=== PATIENT | female | born 1950 | race Caucasian/White ===

== ENCOUNTER 2017-08-09 15:39 | Emergency (ER) | payer MEDICARE, OTHER ==
[2017-08-09 16:05] VITALS: BP 142/70
--- NOTE | 2017-08-09 16:16 | UC ---
Skin Complaint HPI - HPI Summary HPI Summary: 67 yo F with hx multiple tick exposures in the past, hx fibromyalgia states she pulled a tick off her abdomen 3 days ago, then today noted red rash in the site of where the tick was. - History of Current Complaint Chief Complaint: UCSkin Time Seen by Provider: 08/09/17 16:13 Stated Complaint: INSECT BITE ON BELLY Hx Obtained From: Patient Hx Last Menstrual Period: N/A Onset/Duration: Sudden Onset, Lasting Days Skin Exposure Onset/Duration: Days Ago Timing: Constant Onset Severity: Moderate Current Severity: Moderate Pain Intensity: 0 Pain Scale Used: 0-10 Numeric Location: Discrete - abdomen Character: Redness Aggravating Factor(s): Nothing Alleviating Factor(s): Nothing Associated Signs & Symptoms: Positive: Rash. Negative: Fever, Throat Tightening Similar Episode/Dx as: Lyme disease - Allergy/Home Medications Allergies/Adverse Reactions: Allergies Allergy/AdvReac Type Severity Reaction Status Date / Time enoxaparin [From Lovenox] Allergy Intermediate Rash Verified 08/09/17 16:07 pollen extracts Allergy Intermediate Sneezing Verified 08/09/17 16:07 Sulfa (Sulfonamide AdvReac nosebleeds Verified 08/09/17 16:07 Antibiotics) Home Medications: Home Medications Aspirin [Aspirin Childrens 81 MG] 81 mg PO 08/09/17 [History] Dexlansoprazole [Dexilant] 60 mg PO 08/09/17 [History] Fexofenadine (NF) [Ale 180 (NF)] 180 mg PO 08/09/17 [History] Fluticasone NASAL SPRAY 50MCG* [Flonase NASAL SPRAY 50MCG*] 08/09/17 [History] Fluticasone-Salmeterol 250-50* [Advair Diskus 250-50*] 1 puff INH BID 08/09/17 [ History Confirmed 08/09/17] Gabapentin [Neurontin] 100 mg PO 08/09/17 [History] Levothyroxine TAB* [Synthroid TAB*] 100 mcg PO DAILY 08/09/17 [History Confirmed 08/09/17] Metformin HCl [Fortamet] 500 mg PO 08/09/17 [History] Metoprolol Tartrate TAB* [Lopressor TAB*] 25 mg PO DAILY 08/09/17 [History Confirmed 08/09/17] Propylene Glycol/Peg 400/Pf [Systane 0.3-0.4% Eye Drops] 1 each OP 08/09/17 [ History] Rosuvastatin Calcium [Crestor] 20 mg PO 08/09/17 [History] Spironolactone 25 mg PO 08/09/17 [History] raNITIdine HCl [Ranitidine HCl] 150 mg PO 08/09/17 [History] traMADol TAB* [Ultram*] 08/09/17 [History] Review of Systems Constitutional: Negative Skin: Rash Eyes: Negative ENT: Negative Respiratory: Negative Cardiovascular: Negative Gastrointestinal: Negative Motor: Negative Neurovascular: Negative Musculoskeletal: Arthralgia - chronic right hip pain Neurological: Negative Psychological: Negative Is Patient Immunocompromised?: No All Other Systems Reviewed And Are Negative: Yes PMH/Surg Hx/FS Hx/Imm Hx Previously Healthy: No - fibromyalgia Endocrine History: Diabetes, Hypothyroidism, Dyslipidemia Cardiovascular History: Hypertension Respiratory History: COPD - Surgical History Surgical History: Yes Surgery Procedure, Year, and Place: thyroidectomy, hysterectomy, - Family History Known Family History: Positive: Other - cancer - Social History Alcohol Use: Occasionally Substance Use Type: None Smoking Status (MU): Never Smoked Tobacco Physical Exam Triage Information Reviewed: Yes Appearance: No Pain Distress, Well-Nourished, Ill-Appearing - mild Vital Signs: Initial Vital Signs Temp 98.8 F 08/09/17 15:53 Pulse 89 08/09/17 15:53 Resp 16 08/09/17 15:53 BP 142/70 08/09/17 15:53 Pulse Ox 99 08/09/17 15:53 Vital Signs Reviewed: Yes Eyes: Positive: Conjunctiva Clear ENT: Positive: Normal ENT inspection Neck: Positive: Supple, Nontender, No Lymphadenopathy Respiratory: Positive: Lungs clear, Normal breath sounds, No respiratory distress, No accessory muscle use Cardiovascular: Positive: RRR, No Murmur, Pulses Normal, Brisk Capillary Refill Abdomen Description: Positive: Nontender, No Organomegaly, Soft, Other: - diffuse macular erythematous rash, 20cm, with site of tick bite in center; tick has been removed. Negative: Distended, Guarding Bowel Sounds: Positive: Present Musculoskeletal: Positive: Strength Intact, ROM Intact Neurological Exam: Normal Psychological Exam: Normal Skin: Positive: rashes - as above Course/Dx - Course Course Of Treatment: will treat as possible Lyme disease. Rash is consistent with erythema migrans. Advised pt to have definite follow up. Rx for zofran, as pt has taken doxycycline for this in the past, and tolerated doxycycline with the zofran. Advised pt that it is too early for serology. - Differential Diagnoses - Skin Complaint Differential Diagnoses: Cellulitis, Contact Dermatitis, Drug Rash, Local Allergic Reaction, Tick Born Illness - Diagnoses Provider Diagnoses: Erythema migrans. Lyme disease Discharge - Sign-Out/Discharge Documenting (check all that apply): Discharge/Admit/Transfer - discharge home - Discharge Plan Condition: Stable Disposition: HOME Prescriptions: DOXYcycline CAP(*) [DOXYcycline 100MG CAP(*)] 100 mg PO BID #42 cap Ondansetron ODT TAB* [Zofran 4 MG Odt TAB*] 4 mg PO Q6H PRN #30 tab.odt PRN Reason: Nausea Patient Education Materials: Lyme Disease (ED), Tick Bite (ED) Referrals: Non Staff,Doctor [Primary Care Provider] - Additional Instructions: Dr. Howe has prescribed doxycycline 100mg twice a day for a total of 3 weeks, which would treat Lyme disease, if that is what this rash represents. You should take it at least two weeks, and talk with your primary care provider about whether to complete the full dose. This rash looks like erythema migrans to Dr. Howe. It is too early to draw the blood test for Lyme disease. You were also given Prednisone 40mg orally today, to help with the rash, as you have said this has helped in the past. You may still get the cortisone shot in your hip tomorrow. You may take a zofran with each doxycycline capsule, to help you with nausea. Dr. Howe recommends that you might want to spray PERMETHRIN on your clothing, to repel ticks, that you can buy in a sporting goods store, and it lasts for 6 washings. Follow up with you PCP in [place] within 2 weeks. Return to urgent care if any new or worsening symptoms. - Billing Disposition and Condition Condition: STABLE Disposition: HOME
[2017-08-09] MEDS ORDERED: predniSONE TAB* 20 MG PO ONE (16:30)
== END 2017-08-09 16:52 | disposition home or self-care (01) ==
LOC: UCCORT 15:39
DX: A26.0 Cutaneous erysipeloid (principal); A69.20 Lyme disease, unspecified; Z88.2 Allergy status to sulfonamides; Z88.8 Allergy status to other drugs, medicaments and biological substances; M79.7 Fibromyalgia; E03.9 Hypothyroidism, unspecified; E78.5 Hyperlipidemia, unspecified; I10 Essential (primary) hypertension; J44.9 Chronic obstructive pulmonary disease, unspecified
CPT/HCPCS: 99202; G0463; J7512

== ENCOUNTER 2017-08-10 12:04 | Emergency (ER) | payer MEDICARE, OTHER ==
[2017-08-10 12:58] VITALS: BP 138/71
--- NOTE | 2017-08-10 13:20 | UC ---
Skin Complaint HPI - HPI Summary HPI Summary: Rash and itchiness on the abdomen at site of recent tick bite. She is on doxycycline as well. She has had this before and prednisone has helped. She is requesting prednisone and DM has been very well controlled with sugars in the 95 range. - History of Current Complaint Chief Complaint: UCGeneralIllness Time Seen by Provider: 08/10/17 13:05 Stated Complaint: SKIN COMPLAINT-POSS INSECT BITE Hx Obtained From: Patient Hx Last Menstrual Period: N/A Onset/Duration: Gradual Onset, Lasting Days Skin Exposure Onset/Duration: Days Ago Timing: Constant Onset Severity: Mild Current Severity: Mild Pain Intensity: 0 Location: Discrete - abdomen anterior. Character: Pruritus Aggravating Factor(s): Touch Alleviating Factor(s): Nothing Associated Signs & Symptoms: Positive: Rash. Negative: Fever, Chills, Cough, Wheezing, Chest Pain, Drainage, Tenderness, Red Streaks Related History: Possible Reaction to: Insect - Allergy/Home Medications Allergies/Adverse Reactions: Allergies Allergy/AdvReac Type Severity Reaction Status Date / Time enoxaparin [From Lovenox] Allergy Intermediate Rash Verified 08/10/17 12:54 pollen extracts Allergy Intermediate Sneezing Verified 08/10/17 12:54 Sulfa (Sulfonamide AdvReac nosebleeds Verified 08/10/17 12:54 Antibiotics) contrast dye Allergy Hives Uncoded 08/10/17 12:54 Review of Systems Skin: Rash All Other Systems Reviewed And Are Negative: Yes PMH/Surg Hx/FS Hx/Imm Hx Previously Healthy: No - dm. - Surgical History Surgical History: Yes Surgery Procedure, Year, and Place: thyroidectomy, hysterectomy, - Family History Known Family History: Positive: Other - cancer - Social History Alcohol Use: Occasionally Substance Use Type: None Smoking Status (MU): Never Smoked Tobacco Physical Exam Triage Information Reviewed: Yes Appearance: Well-Appearing, No Pain Distress, Obese Vital Signs: Initial Vital Signs Temp 98.2 F 08/10/17 12:48 Pulse 69 08/10/17 12:48 Resp 17 08/10/17 12:48 BP 138/71 08/10/17 12:48 Pulse Ox 98 08/10/17 12:48 Vital Signs Reviewed: Yes Eyes: Positive: Conjunctiva Clear. Negative: Conjunctiva Inflamed ENT: Positive: Normal ENT inspection, Pharynx normal Neck: Positive: Supple, Nontender, No Lymphadenopathy Respiratory: Positive: Lungs clear, Normal breath sounds, No respiratory distress, No accessory muscle use. Negative: Respiratory distress, Decreased breath sounds, Accessory muscle use, Crackles, Rhonchi, Stridor, Wheezing Cardiovascular: Positive: No Murmur, Pulses Normal, Brisk Capillary Refill Abdomen Description: Positive: No Organomegaly, Soft. Negative: Distended, Guarding Musculoskeletal: Positive: Strength Intact, ROM Intact, No Edema Neurological: Positive: Alert, Muscle Tone Normal. Negative: Fatigued Psychological: Positive: Age Appropriate Behavior Skin: Positive: rashes - anterior abdomen pink skin without induration or swelling. Course/Dx - Diagnoses Provider Diagnoses: insect bite and rash. Discharge - Sign-Out/Discharge Documenting (check all that apply): Discharge/Admit/Transfer - Discharge Plan Condition: Good Disposition: HOME Prescriptions: methylPREDNISolone [Medrol] 4 mg PO DAILY #21 tab.ds.pk Patient Education Materials: Acute Rash (ED) Referrals: Non Staff,Doctor [Primary Care Provider] - - Billing Disposition and Condition Condition: GOOD Disposition: HOME
== END 2017-08-10 13:19 | disposition home or self-care (01) ==
LOC: UCCORT 12:04
DX: S30.861A Insect bite (nonvenomous) of abdominal wall, initial encounter (principal); W57.XXXA Bitten or stung by nonvenomous insect and other nonvenomous arthropods, initial encounter; Y93.9 Activity, unspecified; Y92.9 Unspecified place or not applicable; R21 Rash and other nonspecific skin eruption; E11.9 Type 2 diabetes mellitus without complications; Z88.2 Allergy status to sulfonamides; Z88.8 Allergy status to other drugs, medicaments and biological substances; Z91.041 Radiographic dye allergy status
CPT/HCPCS: 99211; G0463

== ENCOUNTER 2019-01-20 14:49 | Emergency (ER) | payer MEDICARE, OTHER ==
--- OUTSIDE RECORDS SUMMARY | 2019-01-20 14:59 | XMS REPORT | Continuity of Care Document ---
:1950 External Reference #:[id number] Author Name Asael Funez M.D. Address [address] [place] [id number] Care Team Providers Name Role Phone Sussy Amado M.D. - Family Care Team Information [employer] Dis[employer] [phone] Medicine Problems Active Problems Provider Date Posterior rhinorrhea Onset: 02/02/2016 Chronic ethmoidal sinusitis Onset: 07/23/2015 Deviated nasal septum Onset: 07/23/2015 Chronic rhinitis Onset: 07/07/2015 Disorder of nasal cavity Onset: 07/07/2015 Pain in face Onset: 07/07/2015 Chronic maxillary sinusitis Onset: 07/26/2014 Difficulty speaking Onset: 12/21/2013 Cough Onset: 12/21/2013 Social History Type Date Description Comments Sex Unknown ETOH Use Occasionally consumes alcohol Tobacco Use Start: Unknown Patient has never smoked Allergies, Adverse Reactions, Alerts Active Allergies Reaction Severity Comments Date Sulfonamides Moderate 10/08/2017 Contrast Dye hives Moderate 10/08/2017 Lovenox hives Moderate 10/08/2017 Lisinopril cough Moderate 10/08/2017 Codeine Sulfate vomiting Moderate 10/08/2017 Doxycycline nausea Moderate 10/08/2017 Medications Active Medications SIG Qnty Indications Ordering Date Provider Augmentin one by mouth twice a 28tabs Asael Funez, 12/07/2018 875-125mg day x 14 days M.D. Tablets Ranitidine HCL Unknown 12/21/2013 150mg Capsules Losartan Potassium Unknown 12/21/2013 50mg Tablets Metoprolol Tartrate Unknown 12/21/2013 25mg Tablets Aspirin Ec Low Dose Unknown 12/21/[address] Acetaminophen Unknown 12/21/2013 160mg/5ML Suspension Levothyroxine Sodium 1 by mouth every day Unknown 88mcg Tablets Turmeric Unknown 500mg Tablets Gabapentin Unknown 500mg Capsules Multivitamin Unknown Metformin HCL take 1 tablet by Unknown 1000mg mouth twice daily Tablets with meals Magnesium With Zinc Unknown Powder Flaxseed Oil Unknown Oil Digestive Support Unknown Capsules Crestor 1 by mouth every day Unknown 10mg Tablets Calcium Citrate + D Unknown Tablets Advair Diskus inhale 1 puff by Unknown inhalation route 2 250-50mcg/Dose times every day in Aerosol the morning and evening approximately 12 hour Spironolactone Unknown 25mg Ale-D 24 Hour take once daily Unknown Allergy & Congestion 180-240mg Tablets ER 24HR Vitamin D Unknown Capsules Immunizations Description No Information Available Vital Signs Date Vital Result Comment 12/07/2018 2:07pm Height 67 inches 5'7" Weight 174.00 lb BMI (Body Mass Index) 27.2 kg/m2 BP Systolic 115 mmHg Right BP Diastolic 71 mmHg Right Heart Rate 76 /min 01/13/2018 2:57pm Height 68 inches 5'8" Weight 178.00 lb BMI (Body Mass Index) 27.1 kg/m2 BP Systolic 124 mmHg right arm BP Diastolic 78 mmHg right arm Results Description No Information Available Procedures Date Code Description Status 12/07/2018 06037 Endoscopy Nasal Diagnostic Completed Medical Devices Description No Information Available Encounters Type Date Location Provider Dx Diagnosis Office Visit 12/07/2018 [facility] Asael Funez, J31.0 Chronic rhinitis 1:[facility] Randi J32.0 Chronic maxillary sinusitis J32.1 Chronic frontal sinusitis Assessments Date Code Description Provider 12/07/2018 J31.0 Chronic rhinitis Asael Funez M.D. 12/07/2018 J32.0 Chronic maxillary sinusitis Asael Funez M.D. 12/07/2018 J32.1 Chronic frontal sinusitis Asael Funez M.D. Plan of Treatment 12/07/2018 - Asael Funez M.D.J31.0 Chronic [id number] Chronic maxillary [id number] Chronic frontal sinusitisComments:Sasha has symptoms consistent with an acute flareup of her sinusitis. Her endoscopy looks surprisingly good today. I obtained a culture from the right maxillary sinus. We have started her on some Augmentin pending the culture results. She will follow up with me as needed.Follow up:as needed Functional Status Description No Information Available Mental Status Description No Information Available Referrals Description No Information Available
--- OUTSIDE RECORDS SUMMARY | 2019-01-20 14:59 | XMS REPORT | Continuity of Care Document ---
:1950 External Reference #:[id number] Author Name TRES Heath (transmitted by agent of provider Sussy Amado MD) Address [address], [address] [place] [address] Care Team Providers Name Role Phone Sasha La Care Team Information [employer] [facility] [phone] Problems Active Problems Provider Date Type 2 diabetes mellitus Onset: 03/10/2015 Benign essential hypertension Onset: 03/10/2015 Type 2 diabetes mellitus Onset: 10/25/2014 Thyroid nodule Onset: 02/19/2014 Deep venous thrombosis Onset: 06/22/2013 Note: She had significant right leg swelling after she had cardiac catheterization done in 2009. She was found to have DVT and was on Coumadin for 6 months. She had repeat testing done and clot resolved. She has not been on Coumadin since thencouma 6. Benign essential hypertension Onset: 06/22/2013 Note: She has had hypertension since around 1999. She is on medicines . 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 Denies any kidney problems.. Diabetes mellitus Onset: 06/22/2013 Note: She was diagnosed with type 2 diabetes in 2012. She is on metformin and has been doing good. She does have slight neuropathy. Denies having any nephropathy and retinopathy.. Mixed hyperlipidemia Onset: 06/22/2013 Note: She has had mixed hyperlipidemia since 1996. She is on Crestor and has been following diet.. Fibromyositis Onset: 06/22/2013 Note: She has had fibromyalgia since . She is on Mobic and take Tylenol. She is also on Neurontin. Asthma Onset: 06/22/2013 Note: She has been having asthma symptoms for last 7 years. It is occurred mainly by acid reflux and has environmental allergies. She is on Flovent which is helping her. Environmental allergy Onset: 06/22/2013 Note: She has had environmental allergies for a long time. She is allergic to pollen, dust and dogs. She has many dogs at home. She is taking Ale and also has been getting allergy shots since 2011 by cider press operator in [place] which has helped her a lot. Gastroesophageal reflux disease Onset: 06/22/2013 Note: She has had acid reflux since 2004. She is on Protonix. She was increased to twice a day but it did not help her. She takes Zantac which helped her.. Osteopenia Sussy Amado MD Onset: 10/22/2015 Allergic rhinitis Sussy Amado MD Onset: 04/19/2016 Papillary thyroid carcinoma Regan Flores MD Onset: 10/22/2016 Postoperative hypothyroidism Regan Flores MD Onset: 10/22/2016 Urinary incontinence Sussy Amado MD Onset: 04/29/2017 Arthralgia of the pelvic region and thigh Sussy Amado MD Onset: 04/29/2017 Shoulder joint pain Sussy Amado MD Onset: 04/29/2017 Type 2 diabetes mellitus with diabetic Sussy Amado MD Onset: 10/27/2017 neuropathy, unspecified Cellulitis and abscess of trunk Sussy Amado MD Onset: 02/09/2018 Palpitations Sussy Amado MD Onset: 05/09/2018 Pain in left lower limb Sussy Amado MD Onset: 06/26/2018 Knee pain Sussy Amado MD Onset: 06/26/2018 Fracture of one rib, left side, subsequent Sussy Amado MD Onset: 2018 encounter for fracture with routine healing Nausea Sussy Amado MD Onset: 07/06/2018 Abdominal pain Sussy Amado MD Onset: 07/06/2018 Joint pain Sussy Amado MD Onset: 07/06/2018 Social History Type Date Description Comments Sex Unknown ETOH Use 01/05/2017 Occasionally consumes 4-5 times a year wine Tobacco Use Reviewed: 01/02/19 Patient has never smoked Recreational Drug Use 10/27/2017 Denies Drug Use Smoking Status Reviewed: 01/02/19 Patient has never smoked Exercise Type/Frequency Exercises daily walk the dog Allergies, Adverse Reactions, Alerts Active Allergies Reaction Severity Comments Date Sulfasalazine gum bleeding med period 07/04/2015 spottg Codeine Sulfate vomiting Moderate 12/07/2018 Codeine sick all over 08/18/2015 Doxycycline nausea Moderate 12/07/2018 Lovenox hives 10/22/2015 Lisinopril cough Moderate 12/07/2018 Amoxicillin Nausea and Vomiting can take with zofran 02/16/2016 Contrast Dye 04/19/2016 Medications Active Medications SIG Qnty Indications Ordering Date Provider Augmentin one by mouth twice 28tabs Asael Funez, 12/07/2018 875-125mg a day x 14 days M.D. Tablets Proair HFA inhale 2 puff by 8.500gm Tisha 04/13/2018 inhalation route MD Namita 108(90Base) mcg/Act every 4 - 6 hours Aerosol needed Levothyroxine Sodium 1 by mouth every 90tabs Regan Flores, 10/25/2016 day 88mcg Tablets Neurontin take 1 capsule by 180caps Sussy Amado, 03/12/2016 100mg oral route 2 times MD Capsules every day along with 300mg tab =500mg daily Metformin HCL take 1 tablet daily 180tabs Sussy Amado, 10/31/2015 500mg in the evening MD Tablets Crestor take 1 tablet by 90tabs Sussy Amado, 10/23/2015 10mg Tablets oral route every MD day Losartan Potassium take 1 tablet by 90tabs Sussy Amado, 10/07/2015 oral route every MD 50mg Tablets day Vitamin D take 1 capsule by 12capaudra Amado, 08/11/2015 (Ergocalciferol) oral route every MD month [id number] Capsules Freestyle Lite Test take 1 by injection 300units Sussy Amado, 2015 route 3 times every MD Strips day Neurontin take 1 capsule by 270caps Sussy Amado, 10/25/2014 300mg oral route every MD Capsules day along with 2- 100mg = 500mg daily Anais Contour Blood insert 1 by 300units Unknown 04/26/2014 Glucose Test Strips Subcutaneous route 2 times every day Strips Epipen 2-Lucio inject 0.3 3units Unknown 04/26/2014 milliliter by 0.3mg/0.3ML Solution intramuscular route Auto-Inject once needed for anaphylaxis Systane Take directed 0units Unknown 04/26/2014 0.4-0.3% Solution Advair Diskus inhale 1 puff by 0units Unknown 04/26/2014 inhalation route 2 250-50mcg/Dose times every day in Aerosol the morning and evening approximately 12 hour Acetaminophen Unknown 12/21/2013 160mg/5ML Suspension Aspirin EC Low Dose Unknown 12/21/[address] Ranitidine HCL Unknown 12/21/2013 150mg Capsules Aspir-81 take 1 tablet by 0tabs Unknown 06/22/2013 81mg Tablets oral route every DR day Metoprolol Tartrate take 1 tablet by 180tabs Sussy Amado, 06/22/2013 oral route 2 times 25mg Tablets every day Vitamin D3 take 1 Capsule by 0caps Unknown 06/22/2013 2000Unit Oral route every Capsules day Flaxseed Oil take 2 capsules by 0caps Unknown 06/22/2013 1000mg oral route every Capsules day Multi-Vitamins take 1 tablet by 0tabs Unknown 06/22/2013 oral route every Tablets day with food Ranitidine HCL take 1 tablet by 0tabs Unknown 06/22/2013 150mg oral route 2 times Tablets every day with a glass of water Turmeric 1 by mouth three Unknown 400mg times a day Capsules Ale-D 24 Hour take once daily Unknown Allergy & Congestion 180-240mg Tablets ER 24HR Acidophilus 1 by mouth every Unknown Capsules day Aldactone 1 tablet by mouth 90tabs Maynor 25mg every day MD Ramon Tablets Carafate take 10ml by mouth Unknown 1GM/10ML four times a day 1 Suspension h before meals 3 daily needed Fluticasone use two sprays in 48gm Sussy Amado, Propionate each nostril once 50mcg/Act daily Suspension Tylenol Go Tabs Unknown Extra Strength 500mg Chewtabs Ael Allergy 1 by mouth every Unknown 180mg day Tablets Calcium 500+D Unknown [id number] Tablets Dexilant 1 per day Unknown 60mg Capsules DR Medications Administered in Office Medication SIG Qnty Indications Ordering Provider Date Administer Influenza Virus Vaccine Sussy Amado MD 05/09/2018 Injection Administer Influenza Virus Vaccine Regan Flores MD 04/27/2017 Injection Administer Influenza Virus Vaccine Sussy Amado MD 01/05/2016 Injection Immunizations CPT Code Status Date Vaccine Lot # [id number] Given 05/09/2018 Influenza Vaccine, High Dose > 65 Years Old [id number] (Includes Medicare) 74846 Given 04/27/2017 Influenza Vaccine, High Dose > 65 Years Old [id number] (Includes Medicare) 19258 Given 01/05/2016 Influenza Vaccine, High Dose > 65 Years Old [id number] (Includes Medicare) 96712 Given 03/10/2015 Prevnar 13 [id number] Given 01/10/2015 Influenza Vaccine, High Dose > 65 Years Old (Includes Medicare) U-Flu Given 01/31/2014 Influenza,Unspecified Vital Signs Date Vital Result Comment 01/02/2019 2:17pm Height 66 inches 5'6" Weight 177.00 lb BMI (Body Mass Index) 28.6 kg/m2 BP Systolic 122 mmHg BP Diastolic 70 mmHg Heart Rate 73 /min Body Temperature 97.8 F Body Temperature 36.6 C O2 % BldC Oximetry 98 % 10/31/2018 2:18pm Height 66 inches 5'6" Weight 170.00 lb BMI (Body Mass Index) 27.4 kg/m2 BP Systolic 126 mmHg BP Diastolic 72 mmHg Heart Rate 64 /min Body Temperature 98.7 F Body Temperature 37.1 C O2 % BldC Oximetry 94 % Results Test Date Facility Test Result H/L Range Note Laboratory test 10/20/2018 [facility] Random < 3.0 mg/L - 1 finding [address] Microalbumin [place] [address] [phone] Random Urine Creatinine 46.6 mg/dL - 2 Laboratory test 10/03/2018 [facility] Hgb A1c 6.8 % 3.6-6.9 3 finding [address] [place] [address] [phone] CMP-Female 10/03/2018 [facility] LDH 170 U/L 120-246 4 W/LDH,Phosphorus,Ur [address] [place] [address] [phone] Phosphorus 4.3 mg/dL 2.7-4.5 5 Uric Acid 5.0 mg/dL 2.6-7.2 6 CMP-Female 10/03/2018 [facility] Glucose 105 mg/ dL 74-106 7 [address] [place], [place] [id number] [phone] BUN 15 mg/dL 6-20 Creatinine 0.7 mg/dL 0.5-1.3 Sodium 136 mmol/L 136-145 Potassium 4.6 mmol/L 3.5-5.3 Chloride 97 mmol/L Low 98-107 Co2 28 mEq/L 20-31 Anion Gap 11 mmol/L 7-16 eGFR-female 83 mL/m/1.73m - eGFR-Aa female 100 mL/m/1.73m - 8 Alk. Phos. 70 U/L 46-116 Alt 18 U/L 4-36 9 Ast 18 U/L 8-33 Total Bilirubin 0.5 mg/dL 0.3-1.2 Total Protein 6.7 g/dL 6.4-8.3 10 Albumin 4.6 g/dL 3.6-5.1 A/G Ratio 2.2 Ratio High 1.0-2.0 Globulin 2.1 g/dL 1.9-3.7 Calcium 9.7 mg/dL 8.9-10.5 CBCP 10/03/2018 [facility] WBC. 6.53 x10E3/uL 4.2-12.0 [address] [place] [address] [phone] RBC 4.15 x10E6/uL 3.9-5.4 HGB 13.7 g/dL 12.0-16.0 HCT 40.7 % 36-47 MCV 98.0 fL 80-98 MCH 33.1 pg High 27-33 MCHC 33.8 g/dL 32-36 RDW 12.2 % 11.2-15.2 PLT 365 x10E3/uL 135-420 MPV 7.3 fL 7.0-12.3 Laboratory test 10/03/2018 [facility] Vitamin D, 34.21 30-[address] 25(Oh). ng/ml [place] [address] [phone] LPPM 10/03/2018 [facility] Cholesterol 174 mg/ dL 0-[address] [place] [id number] [phone] Triglycerides 164 mg/dL 0-249 12 HDL 67 mg/dL High 40-60 LDL-Calculated 74 mg/dL 0-130 VLDL 33 mg/dL High 0-28 Cardiac Risk 2.60 Ratio Low 3.7-5.3 Laboratory test 10/03/2018 [facility] Est. Average 148 mg/dL - [address] Gl[place] [id number] [phone] Venipuncture DONE - 14 Hypothyroidism Panel 10/03/2018 [facility] TSH3 0.582 mIU/ml 0.350-5.[address] [place], [place] [id number] [phone] Free T4 1.18 ng/dL 0.89-1.80 16 Laboratory test 10/03/2018 [facility] Thyroglobulin <1 IU/mL < or = finding [address] Antibodies 1- [place], [place] [id number] [phone] Thyroglobulin,LC/MS/MS <0.4 ng/mL - 17 Laboratory test 07/06/2018 [facility] Lyme Disease 0.20 0-0.[address] [place] [place] [address] Reflex [phone] Venipuncture DONE - 1 Reference Range for Random Microalbumin not defined Unable to calculate Albumin/Creatinine ratio with less than result. 2 Reference Range Random Urine Creatinine not defined 3 Hgb A1c Interpretation: <5.8% - Non-diabetic >6.5% - Diabetic <7.0% - ADA diabetic treatment goal 4 FASTING 12 Please cc HGB A1C to Dr. Regan Flores to complete his request from 09/27/18 Ni on accession 5 FASTING 12 Please cc HGB A1C to Dr. Regan Flores to complete his request from 09/27/18 Ni on accession 6 FASTING 12 Please cc HGB A1C to Dr. Regan Flores to complete his request from 09/27/18 Ni on accession 7 [employer] Diabetes Association (ADA) Recommended Range is 65-99 mg/dL 8 Normal Kidney Function or Mild Disease GFR >59 mL/min/1.73m2 Chronic Kidney Disease GFR 15-59 mL/min/1.73m2 Renal Failure GFR <15 mL/min/1.73m2 9 Effective 10/09/2016: [facility] has indicated interference with the drugs sulfasalazine and sulfapyridine. They suggest collection should occur prior to drug administration due to falsely depressed results. 10 Results may reflect a potential interference in Total Protein results in patients receiving dextran as blood volume expanders. 11 Recommended Levels for Circulating 25-hydroxy Vitamin D: Vitamin D Status 25-OH Vitamin D Test Result Deficient <10ng/mL Insufficient 10-29ng/mL Sufficient 30-100ng/mL Potential Intoxication >100ng/mL A pediatric reference range has not been established using this method. 12 National Cholesterol Education Program (NCEP) Guidelines: Recommended Range <150 mg/dL 13 The Estimated Average Glucose is a calculation of the average glucose over the last 120 days including non-fasting as well as fasting levels. 14 FASTING 12 Please cc HGB A1C to Dr. Regan Flores to complete his request from 09/27/18 Ni on accession 15 thyroglobulin level (with LCMS) HGB A1C resulted on order from Dr. Sussy Amado. NI is on [id number] [facility] did not order Thyroglobulin Ab-test will be credited per Aissatou Wilson at [employer]/-lc 16 thyroglobulin level (with LCMS) HGB A1C resulted on order from Dr. Sussy Amado. NI is on [id number] [facility] did not order Thyroglobulin Ab-test will be credited per Aissatou Wilson at [employer]/-lc 17 Reference Range: Athyrotic: <0.4 Reference range applies to differentiated thyroid cancer patients following treatment. The presence of measurable thyroglobulin indicates the presence of thyroglobulin-producing thyroid tissue. Clinical correlation is advised. This Thyroglobulin test was performed by tandem mass spectrometry (LC/MS/MS) and does provide quantitative measurements of thyroglobulin in the presence of anti-Tg antibodies. Values obtained from different assay methods cannot be used interchangeably. Thyroglobulin levels, regardless of value, should not be interpreted as absolute evidence of the presence or absence of disease. This test was developed and its analytical performance characteristics have been determined by [employer] [facility]. It has not been cleared or approved by FDA. This assay has been validated pursuant to the CLIA regulations and is used for clinical purposes. 18 Normal Range: Less than 0.90 Index Value Result Interpretation < or = 0.90 Negative No B. burgdorferi antibodies detected 0.91-1.19 Equivocal Possible B. burgdorferi antibodies detected > or = 1.2 Positive B. burgdorferiantibodies detected This assay is intended for the presumptive detection of human IgG and IgM antibodies to Borrellia burgdorferi. A positive or equivocal result will be tested by Western Blot/Immunoblot and should not b e interpreted as truly positive until verified by such testing. If Lyme disease is strongly suspected with a negative screen, a second specimen should be collected in 2 to 4 weeks. Procedures Date Code Description Status 08/21/2018 90321 Cardiovascular Stress Test Interpretation & Report Only Completed 08/21/2018 70657 Cardiovascular Stress Test Physician Supervision Only Completed 08/19/2018 73280 Electrocardiogram Interpretation & Report Only Completed 08/18/2018 97839 Electrocardiogram Interpretation & Report Only Completed 07/27/2018 78346 Electrocardiogram Interpretation & Report Only Completed Medical Devices Description No Information Available Encounters Type Date Location Provider Dx Diagnosis Office Visit 10/31/2018 [facility] Primary Care Sussy Amado MD Z00.01 Encounter for 2:00p AT [place] general adult medical exam w abnormal findings E11.40 Type 2 diabetes mellitus with diabetic neuropathy, unsp K21.9 Gastro-esophageal reflux disease without esophagitis E78.2 Mixed hyperlipidemia I10 Essential (primary) hypertension J45.30 Mild persistent asthma, uncomplicated E89.0 Postprocedural hypothyroidism C73 Malignant neoplasm of thyroid gland Z13.31 Encounter for screening for depression A69.20 Lyme disease, unspecified M15.9 Polyosteoarthritis, unspecified M25.531 Pain in right wrist Z79.84 halfway (current) use of oral hypoglycemic drugs Office Visit 09/27/2018 2:20p [facility] Primary Care Regan Flores, C73 Malignant AT [place] neoplasm of thyroid gland E89.0 Postprocedural hypothyroidism S20.462A Insect bite (nonvenomous) of left back wall of thorax, init E11.9 Type 2 diabetes mellitus without complications E55.9 Vitamin D deficiency, unspecified Z79.84 halfway (current) use of oral hypoglycemic drugs Office Visit 09/01/2018 1:00p CMP Primary Sussy Amado, E11.40 Type 2 diabetes Care AT mellitus with [place] diabetic neuropathy, unsp I10 Essential (primary) hypertension A69.20 Lyme disease, unspecified K21.9 Gastro-esophageal reflux disease without esophagitis M25.551 Pain in right hip M25.562 Pain in left knee R07.9 Chest pain, unspecified R21 Rash and other nonspecific skin eruption Z79.84 halfway (current) use of oral hypoglycemic drugs Office Visit 08/20/2018 9:11a [facility] Cardiology Maynor R07.9 Chest pain, [facility] MD Ramon unspecified Office Visit 08/19/2018 8:33a [facility] Cardiology Maynor I25.10 [facility] MD Ramon disease of [place] coronary artery w/o ang pctrs E78.5 Hyperlipidemia, unspecified E11.9 Type 2 diabetes mellitus without complications I10 Essential (primary) hypertension R42 Dizziness and giddiness R00.2 Palpitations Z85.850 Personal history of malignant neoplasm of thyroid Z79.4 halfway (current) use of insulin Z86.718 Personal history of other venous thrombosis and embolism Office Visit 07/06/2018 1:00p CMP Primary Care AT Sussy Amado MD R11.0 Nausea [place] R10.30 Lower abdominal pain, unspecified K21.9 Gastro-esophageal reflux disease without esophagitis M25.50 Pain in unspecified joint S22.32xD Fracture of one rib, left side, subs for FX w routn heal M79.605 Pain in left leg I10 Essential (primary) hypertension Assessments Date Code Description Provider 01/02/2019 R06.00 Dyspnea, unspecified TRES Heath 01/02/2019 I25.9 Chronic ischemic heart disease, Felicia JOSHUA unspecified 10/31/2018 Z00.01 Encounter for general adult medical Sussy Amado MD examination with abnorma 10/31/2018 E11.40 Type 2 diabetes mellitus with diabetic Sussy Amado MD neuropathy, unspecifi 10/31/2018 K21.9 Gastro-esophageal reflux disease Sussy Amado MD without esophagitis 10/31/2018 E78.2 Mixed hyperlipidemia Sussy Amado MD 10/31/2018 I10 Essential (primary) hypertension Sussy Amado MD 10/31/2018 J45.30 Mild persistent asthma, uncomplicated Sussy Amado MD 10/31/2018 E89.0 Postprocedural hypothyroidism Sussy Amado MD 10/31/2018 C73 Malignant neoplasm of thyroid gland Sussy Amado MD 10/31/2018 Z13.31 Encounter for screening for depression Sussy Amado MD 10/31/2018 A69.20 Lyme disease, unspecified Sussy Amado MD 10/31/2018 M15.9 Polyosteoarthritis, unspecified Sussy Amado MD 10/31/2018 M25.531 Pain in right wrist Sussy Amado MD 10/31/2018 Z79.84 halfway (current) use of oral Sussy Amado MD hypoglycemic drugs 10/20/2018 E11.40 Type 2 diabetes mellitus with diabetic [facility] neuropathy, unsp 10/20/2018 E55.9 Vitamin D deficiency, unspecified [facility] 10/20/2018 E78.2 Mixed hyperlipidemia [facility] 10/20/2018 I10 Essential (primary) hypertension [facility] 10/20/2018 K21.9 Gastro-esophageal reflux disease [facility] without esophagitis 10/03/2018 E11.40 Type 2 diabetes mellitus with diabetic [facility] neuropathy, unsp 10/03/2018 E55.9 Vitamin D deficiency, unspecified [facility] 10/03/2018 E78.2 Mixed hyperlipidemia [facility] 10/03/2018 I10 Essential (primary) hypertension [facility] 10/03/2018 K21.9 Gastro-esophageal reflux disease [facility] without esophagitis 10/03/2018 C73 Malignant neoplasm of thyroid gland [facility] 10/03/2018 E11.40 Type 2 diabetes mellitus with diabetic [facility] neuropathy, unsp 10/03/2018 E55.9 Vitamin D deficiency, unspecified [facility] 09/27/2018 C73 Malignant neoplasm of thyroid gland eRgan Flores MD 09/27/2018 E89.0 Postprocedural hypothyroidism Regan Flores MD 09/27/2018 S20.462A Insect bite (nonvenomous) of left back Regan Flores MD wall of thorax, initi 09/27/2018 E11.9 Type 2 diabetes mellitus without Regan Flores MD complications 09/27/2018 E55.9 Vitamin D deficiency, unspecified Regan Flores MD 09/27/2018 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 drugs 09/01/2018 E11.40 Type 2 diabetes mellitus with diabetic Sussy Amado MD neuropathy, unspecifi 09/01/2018 I10 Essential (primary) hypertension Sussy Amado MD 09/01/2018 A69.20 Lyme disease, unspecified Sussy Amado MD 09/01/2018 K21.9 Gastro-esophageal reflux disease Sussy Amado MD without esophagitis 09/01/2018 M25.551 Pain in right hip Sussy Amado MD 09/01/2018 M25.562 Pain in left knee Sussy Amado MD 09/01/2018 R07.9 Chest pain, unspecified Sussy Amado MD 09/01/2018 R21 Rash and other nonspecific skin Sussy Amado MD eruption 09/01/2018 Z79.84 halfway (current) use of oral Sussy Amado MD hypoglycemic drugs 08/21/2018 Z23 Encounter for immunization Beatriz Fine MD 08/21/2018 I25.9 Chronic ischemic heart disease, Beatriz Fine MD unspecified 08/21/2018 R07.9 Chest pain, unspecified Beatriz Fine MD 08/20/2018 R07.9 Chest pain, unspecified Maynor Navarro MD 08/19/2018 I25.10 Atherosclerotic heart disease of [place] Maynor Navarro MD coronary artery with 08/19/2018 E78.5 Hyperlipidemia, unspecified Maynor Navarro MD 08/19/2018 E11.9 Type 2 diabetes mellitus without Maynor Navarro MD complications 08/19/2018 I10 Essential (primary) hypertension Maynor Navarro MD 08/19/2018 R42 Dizziness and giddiness Maynor Navarro MD 08/19/2018 R00.2 Palpitations Maynor Navarro MD 08/19/2018 Z85.850 Personal history of malignant neoplasm Maynor Navarro MD of thyroid 08/19/2018 Z79.4 halfway (current) use of insulin Maynor Navarro MD 08/19/2018 Z86.718 Personal history of other venous Maynor Navarro MD thrombosis and embolism 08/19/2018 R07.89 Other chest pain Maynor Navarro MD 08/19/2018 A69.20 Lyme disease, unspecified Maynor Navarro MD 08/19/2018 E11.9 Type 2 diabetes mellitus without Maynor Navarro MD complications 08/19/2018 I10 Essential (primary) hypertension Maynor Navarro MD 08/19/2018 E78.5 Hyperlipidemia, unspecified Maynor Navarro MD 08/19/2018 K21.9 Gastro-esophageal reflux disease Maynor Navarro MD without esophagitis 08/19/2018 J45.909 Unspecified asthma, uncomplicated Maynor Navarro MD 08/19/2018 I25.10 Athscl heart disease of [place] coronary Maynor Navarro MD artery w/o ang pctrs 08/18/2018 R07.89 Other chest pain Maynor Navarro MD 08/18/2018 A69.20 Lyme disease, unspecified Maynor Navarro MD 08/18/2018 E11.9 Type 2 diabetes mellitus without Maynor Navarro MD complications 08/18/2018 I10 Essential (primary) hypertension Maynor Navarro MD 08/18/2018 E78.5 Hyperlipidemia, unspecified Maynor Navarro MD 08/18/2018 K21.9 Gastro-esophageal reflux disease Maynor Navarro MD without esophagitis 08/18/2018 J45.909 Unspecified asthma, uncomplicated Maynor Navarro MD 08/18/2018 I25.10 Athscl heart disease of [place] coronary Maynor Navarro MD artery w/o ang pctrs 07/27/2018 R06.00 Dyspnea, unspecified Aaron Jin MD 07/27/2018 R11.0 Nausea Aaron Jin MD 07/27/2018 R52 Pain, unspecified Aaron Jin MD 07/27/2018 E11.9 Type 2 diabetes mellitus without Aaron Jin MD complications 07/27/2018 E78.5 Hyperlipidemia, unspecified Aaron Jin MD 07/27/2018 I10 Essential (primary) hypertension Aaron Jin MD 07/27/2018 Z85.850 Personal history of malignant neoplasm Aaron Jin MD of thyroid 07/27/2018 Z86.718 Personal history of other venous Aaron Jin MD thrombosis and embolism 07/11/2018 R10.32 Left lower quadrant pain [facility] 07/11/2018 R19.4 Change in bowel habit [facility] 07/06/2018 R11.0 Nausea Sussy Amado MD 07/06/2018 R10.30 Lower abdominal pain, unspecified Sussy Amado MD 07/06/2018 K21.9 Gastro-esophageal reflux disease Sussy Amado MD without esophagitis 07/06/2018 M25.50 Pain in unspecified joint Sussy Amado MD 07/06/2018 S22.32xD Fracture of one rib, left side, Sussy Amado MD subsequent encounter for fra 07/06/2018 M79.605 Pain in left leg Sussy Amado MD 07/06/2018 I10 Essential (primary) hypertension Sussy Amado MD 07/06/2018 M25.50 Pain in unspecified joint [facility] Plan of Treatment Future Appointment(s):04/19/2019 2:40 pm - Sussy Amado MD at [facility] AT [facility]49/15/2020 2:20 pm - Regan Flores MD at [facility] Primary Care AT Pnygesqt50/24/2019 - Tom Brody, PAR06.00 Dyspnea, unspecified Functional Status Functional Condition Comment Date Status Hearing Aid in both ears Active Mental Status Description No Information Available Referrals Refer to Reason for Referral Status Appt Ruth Edwards M.D. Scheduled 07/10/2018 [facility] [address], [address] [place] [address] [phone]
[2019-01-20 15:06] VITALS: BP 131/68
--- NOTE | 2019-01-20 15:18 | UC ---
Skin Complaint HPI - HPI Summary HPI Summary: 68-year-old female who removed a tick from just below her navel last evening. She's thinks it's been on less than 24 hours. She does have a history of Lyme disease. - History of Current Complaint Chief Complaint: UCSkin Time Seen by Provider: 01/20/19 14:54 Stated Complaint: TICK BITE Hx Obtained From: Patient Hx Last Menstrual Period: N/A ?: No Onset/Duration: Gradual Onset Skin Exposure Onset/Duration: Hours Ago Timing: Constant Onset Severity: Mild Current Severity: Mild Pain Intensity: 2 Location: Other - Just below umbilicus. Character: Pruritus, Redness Aggravating Factor(s): Nothing Alleviating Factor(s): Nothing Associated Signs & Symptoms: Positive: Negative Related History: Insect Bite/Sting - Allergy/Home Medications Allergies/Adverse Reactions: Allergies Allergy/AdvReac Type Severity Reaction Status Date / Time enoxaparin [From Lovenox] Allergy Intermediate Rash Verified 01/20/19 15:01 pollen extracts Allergy Intermediate Sneezing Verified 01/20/19 15:01 Sulfa (Sulfonamide AdvReac See Comment Verified 01/20/19 15:01 Antibiotics) contrast dye Allergy Hives Uncoded 01/20/19 15:01 Home Medications: Home Medications Losartan TAB* [Cozaar TAB*] 50 mg QPM 01/20/19 [History Confirmed 01/20/19] PMH/Surg Hx/FS Hx/Imm Hx Previously Healthy: Yes Endocrine History: Diabetes, Thyroid Disease Cardiovascular History: Hypertension Cancer History: Other - Thyroid cancer - Surgical History Surgical History: Yes Surgery Procedure, Year, and Place: thyroidectomy. hysterectomy. Cardiac Cath 2007 - Family History Known Family History: Positive: Other - cancer - Social History Alcohol Use: Rare Substance Use Type: None Smoking Status (MU): Never Smoked Tobacco Review of Systems All Other Systems Reviewed And Are Negative: Yes Skin: Positive: Rash - Mild rash around the tick bite that is located just below the umbilicus., Other Is Patient Immunocompromised?: No Physical Exam Triage Information Reviewed: Yes Appearance: Well-Appearing, No Pain Distress, Well-Nourished Vital Signs: Initial Vital Signs Temp 98.1 F 01/20/19 15:01 Pulse 72 01/20/19 15:01 Resp 16 01/20/19 15:01 BP 131/68 01/20/19 15:01 Pulse Ox 98 01/20/19 15:01 Vital Signs Reviewed: Yes Skin: Positive: Other - The tick bite is located just below the umbilicus and it is surrounded by approximately 5.0 cm of erythema. Nontender on palpation. I do not feel this is a secondary skin infection but more likely a local reaction to the tick bite. Course/Dx - Course Course Of Treatment: Patient is comfortable here. I'm am going to treat her with the prophylactic doxycycline. She is follow-up with her primary care provider as needed for any symptoms of Lyme disease of which she is quite knowledgeable. - Diagnoses Provider Diagnosis: Tick bite of abdomen Discharge ED - Sign-Out/Discharge Documenting (check all that apply): Patient Departure All imaging exams completed and their final reports reviewed: No Studies - Discharge Plan Condition: Good Disposition: HOME Prescriptions: DOXYcycline CAP(*) [DOXYcycline 100MG CAP(*)] 100 mg PO ONCE 1 Days #2 cap Patient Education Materials: Tick Bite (ED) Referrals: Sussy Amado MD [Primary Care Provider] - Additional Instructions: Follow-up with your primary care provider if you develop fever, chills, body aches or increased rashes. - Billing Disposition and Condition Condition: GOOD Disposition: Home
== END 2019-01-20 15:24 | disposition home or self-care (01) ==
LOC: UCCORT 14:49
DX: S30.861A Insect bite (nonvenomous) of abdominal wall, initial encounter (principal); I10 Essential (primary) hypertension; E11.9 Type 2 diabetes mellitus without complications; Z85.850 Personal history of malignant neoplasm of thyroid; Z79.899 Other long term (current) drug therapy; W57.XXXA Bitten or stung by nonvenomous insect and other nonvenomous arthropods, initial encounter; Y92.9 Unspecified place or not applicable
CPT/HCPCS: 99212; G0463